=== PATIENT | female | born 1965 | race Caucasian/White ===

== ENCOUNTER 2024-02-12 06:21 | Emergency (ER) | payer BC, SELFPAY ==
[2024-02-12 06:25] VITALS: BP 123/82
[2024-02-12 06:44] VITALS: BP 123/72
[2024-02-12 06:57] LABS: Urine Albumin Negative (Neg - Trace); Urine Bilirubin Negative (Negative); Urine Character Clear (Clear); Urine Color Yellow; Urine Glucose Negative (Negative); Urine Ketone Negative (Negative); Urine Leukocyte Negative (Negative); Urine Nitrite Negative (Negative); Urine Occult Blood Trace (Negative); Urine Specific Gravity 1.015 (<1.030); Urine Urobilinogen Negative (Neg - 1+)
[2024-02-12 06:59] LABS: % Basophils 1.1 % (0-2); % Eosinophils 1.5 % (0-6); % Immature Granulocytes 0.4 % (0-0.5); % Lymphocytes 38.3 % (20.5-51.1); % Monocytes 9.1 % (1.7-9.3); % Neutrophils 49.6 % (42.2-75.2); Absolute Basophils 0.1 10^3/uL (0-0.2); Absolute Eosinophils 0.1 10^3/uL (0-0.7); Absolute Lymphocytes 1.8 10^3/uL (1.2-3.4); Absolute Monocytes 0.4 10^3/uL (0.1-0.6); Absolute Neutrophils 2.4 10^3/uL (1.4-6.5); Hemoglobin 13.1 g/dL (12.0-16.0); Mean Corp Hgb Conc. 33.6 g/dL (33.0-37.0); Mean Corpuscular Hgb 28.4 pg (27.0-31.0); Mean Corpuscular Volume 84.6 fL (81.0-99.0); Mean Platelet Volume 10.3 fL (7.4-10.4); Nucleated Red Blood Cells % 0 %; Platelet Count 286 10^3/uL (130-400); Red Blood Cell Count 4.61 10^6/uL (4.20-5.40); Red Cell Dist. Width 12.9 % (11.5-14.5); White Blood Cell Count 4.8 10^3/uL (4.8-10.8)
[2024-02-12 07:00] VITALS: BP 122/75
[2024-02-12 07:11] LABS: ALT (SGPT) 48 U/L (0-35); AST (SGOT) 50 U/L (14-36); Albumin 4.7 g/dl (3.5-5.0); Alkaline Phosphatase 67 U/L (38-126); Blood Urea Nitrogen 14 mg/dl (7-17); Calcium 10.1 mg/dl (8.4-10.2); Carbon Dioxide 30 mmol/L (22-30); Chloride 107 mmol/L (98-107); Glucose 113 mg/dl (70-99); Lipase 90 U/L (23-300); Potassium 3.9 mmol/L (3.5-5.1); Sodium 143 mmol/L (135-145); Total Bilirubin 0.6 mg/dl (0.2-1.3); Total Protein 7.2 g/dl (6.3-8.2); eGFR > 60.00
[2024-02-12 07:21] LABS: Urine Bacteria Few (Negative); Urine White Cell 0-2 /HPF (0-5)
[2024-02-12 07:25] LABS: Troponin I < 0.012 ng/ml
--- NOTE | 2024-02-12 07:36 | ED.GENMED ---
History of Present Illness
General
Chief Complaint: Chest Pain
Source: patient
Exam Limitations: none
Time Seen by Provider: 02/12/24 07:05
Nursing documentation reviewed up to this point in time: agreed with
History of Present Illness
History of Present Illness:
58-year-old female with past medical history of Sjogren's, inappropriate sinus tachycardia, small fiber neuropathy on hydroxychloroquine, metoprolol and omeprazole presents to the ER for evaluation. Patient reports for the past 3 months at least
she has had reflux symptoms. She put her self on omeprazole. She did see her boiler out Dr. Sumaya Villalobos and because she had normal stress test in 2020 he did not think this was cardiac and put her on Protonix 40 mg. She does have a GI doctor that
is not associate with this hospital and saw the GI physician January 24. Because she was doing well on 40 mg of omeprazole he decreased it to 20 mg every day and after couple days of 20 mg her symptoms started to recur. Patient reports last night it
was the worst its ever been it is worse with sleeping or laying down she did take Tums without relief she denies any shortness of breath however she does feel the pain in her back. Sometimes she gets tingling in her arm. She denies any abdominal
pain.
Because of the sinus tachycardia she avoids caffeine and has been avoiding acidic foods. She has had a slight decreased appetite because of symptoms she denies any weight loss.
She denies any recent fever chills injury. She has no cardiac history. She is no family cardiac history disease. She does not smoke.
Review of Systems
Review of Systems
Allergies reviewed?: Yes
All Other Systems: ROS reviewed and negative except as documented in HPI and ROS
Constitutional: Reports no symptoms
EENT: Reports no symptoms
Respiratory: Reports no symptoms
Cardiac: Reports no symptoms
ABD/GI: Reports other (Reflux)
: Reports no symptoms
Musculoskeletal: Reports back pain (feels pain in her back )
Skin: Reports no symptoms
Neurological: Reports no symptoms
Psychiatric: Reports no symptoms
Phy Exam
General Physical Exam
General Presentation: no apparent distress
General age: appears stated age
General Skin: warm and dry
General Habitus: normal
General Mental: alert
General Hydration: appears well hydrated
Cardiovascular Exam
Cardiovascular Exam: regular rate/rhythm, no murmur and normal peripheral pulses
Neurological Exam
Neurological Exam: alert and oriented x3
Musculoskeletal Exam
Musculoskeletal Exam: full ROM
Skin Exam
Skin Exam: normal color and warm/dry
Psychiatric Exam
Psychiatric Exam: normal mood/affect
Scores
Heart Score for Chest Pain Patients
STEMI patient?: Not applicable
Course
Orders/Labs/Results
Orders:
Orders
02/12/24 06:30
IV Insert/Care/Rem.- Treatment PRN
Straight cath- Treatment ONCE
02/12/24 06:31
ECG [Electrocardiogram (*1)] Urgent
Reason for Study: Chest Pain
Cardiology Consult: Naveed Bains
EKG- Treatment ONCE
02/12/24 06:47
Complete Blood Count/With Diff Urgent
Comprehensive Metabolic Panel Urgent
Lipase Urgent
Troponin I Urgent
Urinalysis Reflex To Culture Urgent
Date Specimen was Collected: 02/12/24
Time Specimen was Collected: 06:31
Urine Microscopic Reflex Cult Urgent
02/12/24 07:40
Electrocardiogram (*1) Stat
Reason for Study: Other
Other Reason for Exam: chest pain
Mag Hydrox/Al Hydrox/Simeth [Maalox] 30 ml Phenobarb/Hyoscy/Atropine/Scop [] 10 ml PO NOW
02/12/24 07:41
Chest [CR Chest - 2 Views ] Urgent
Comment:
Reason For Exam: cp
02/12/24 07:42
US Abdomen Complete/Upper Urgent
Comment:
Reason For Exam: upper abd pain/ reflux radiating to back
02/12/24 07:55
Mag Hydrox/Al Hydrox/Simeth [Maalox] 30 ml .ROUTE .STK-MED ONE
Phenobarb/Hyoscy/Atropine/Scop [] 10 ml .ROUTE .STK-MED ONE
02/12/24 09:40
Sucralfate Suspension [Carafate Suspension] 1 gm PO NOW STA
Abnormal Lab Results
02/12/24
06:47
Glucose 113 H mg/dl
(70-99)
AST 50 H U/L
(14-36)
ALT 48 H U/L
(0-35)
Ur Occult Blood Reflex Trace A
(Negative)
Urine RBC 3-6 A /HPF
(0-2)
Urine Bacteria (Reflex) Few A
(Negative)
02/12/24 06:47
02/12/24 06:47
Vital Signs
Initial and Last Documented VS:
Initial Vital Signs
Temp Pulse Resp BP Pulse Ox
99.2 F 90 20 123/82 98
02/12/24 06:25 02/12/24 06:25 02/12/24 06:25 02/12/24 06:25 02/12/24 06:25
Last Documented Vital Signs
Temp Pulse Resp BP Pulse Ox
99.2 F 81 16 103/71 95
02/12/24 06:25 02/12/24 07:45 02/12/24 07:45 02/12/24 10:00 02/12/24 10:15
Vocational Training Teacher consulted with Physician
Vocational Training Teacher consulted with physician?: Yes
Name of Physician Consulted: Hi
MDM/Problems Addressed
MDM/Problems Addressed:
Patient has had reflux symptoms for the past several months on omeprazole currently however symptoms worsened last night. She had a normal stress test in 2020 is seen by cardiology for sinus tachycardia. Because of worsening reflux last night
patient presented to the ER today. She did take Tums without relief. She does feel pain in her back. She has no cardiac history and no cardiac risk factors no family history of cardiac disease she does not smoke. She presents awake alert no
acute distress abdomen soft nontender. With discomfort radiating to back will check ultrasound chest x-ray and give dose of GI cocktail here in the ER. I did review patient's stress echo from 2020 which was normal.
11am: Patient felt some improved from GI cocktail however she was given Carafate which did not really improve her symptoms. Will DC with continued Protonix that she is currently taking will add Carafate however I do feel that patient does need GI
follow-up and endoscopy. GI senior front end developer office was notified patient given information for GI also reviewed with family doctor follow-up
*Pulse Oximetry
Patient hypoxic: no
*Critical Care Note
Total Time (30-74mins, 75-104mins- exclusive of procedures): Not Applicable
Data Reviewed
Review of Other/Old Records Reveals: Other (Stress echo from 2020 reviewed)
ED Attending Note
-
Portions of this chart may have been created with voice recognition software.� Occasional wrong word or��sound alike� substitutions may have occurred due to the inherent limitations of voice recognition software.
Discharge Plan
Departure
Patient Disposition: Home (Routine Discharge)
Date of Disposition: 02/12/24
Time of Disposition: 11:07
Patient with high blood pressure during this ER visit?: No
Condition: Fair
Covid-19: Not Applicable
Discharge Problem:
GERD (gastroesophageal reflux disease)
Instructions: Acid Reflux and GERD in Adults (DC)
Prescriptions:
New
sucralfate [Carafate] 100 mg/mL suspension
10 ml PO ACHS Qty: 1000 0RF
No Action
Ajovy Syringe
225 mg PO MONTHLY
Metoprolol
25 mg PO DAILY
Referrals:
Alessandra Matthew MD [Active] -
Enedelia Godinez CRNP [Family Provider] -
Activity Restrictions/Additional Instructions:
As discussed continue Protonix. A prescription for Carafate was sent to your pharmacy as requested. He may take this before meals and at bedtime. Follow-up with your family doctor and GI as discussed. Return if any worsening of symptoms. Call
Tuesday morning for appointment.
Interventions
Interventions:
*Risk Screen - Suicide Last Done: 02/12/24 06:25
*General Assessment Last Done: 02/12/24 06:25
*Neglect/Abuse Screening Last Done: 02/12/24 06:25
ED- Fall Risk Assessment Last Done: 02/12/24 06:25
*ED COVID-19 Vaccine History Last Done: 02/12/24 06:25
DG-Gcgerr-Gfnfsqojdr Assessment Last Done: 02/12/24 06:58
ED- Cardiac Assessment Last Done: 02/12/24 06:58
Discharge Date and Time
Print Language: ITALIAN
[2024-02-12] MEDS: MAALOX 40 PO (08:13)
[2024-02-12 09:29] VITALS: BP 109/72
[2024-02-12] MEDS: CARAFATE SUSPENSION 1 GM PO (09:47)
[2024-02-12 10:00] VITALS: BP 103/71
[2024-02-12 11:00] VITALS: BP 110/70
== END 2024-02-12 11:38 | disposition home or self-care (01) ==
LOC: EMR 06:21
PROVIDERS: EMERGENCY PHYSICIAN Emergency Medicine; FAMILY PHYSICIAN Nurse Practitioner
DX: K21.9 Gastro-esophageal reflux disease without esophagitis (principal)
CPT/HCPCS: 99285; 71046; 76700; 80053; 81003; 81015; 83690; 84484; 85025; 93005

== ENCOUNTER → 2024-06-04 13:38 | Outpatient (REF) | payer BC, SELFPAY | LOC: HWRAD 13:38 | PROVIDERS: ATTENDING PHYSICIAN Nurse Practitioner | DX: E04.1 Nontoxic single thyroid nodule (principal) | CPT/HCPCS: 76536 ==

== ENCOUNTER → 2024-07-09 09:04 | Outpatient (REF) | payer BC, SELFPAY | LOC: HWWDC 09:04 | PROVIDERS: ATTENDING PHYSICIAN Nurse Practitioner Adult Health; FAMILY PHYSICIAN Nurse Practitioner | DX: Z12.31 Encounter for screening mammogram for malignant neoplasm of breast (principal) | CPT/HCPCS: 77063; 77067 ==

== ENCOUNTER → 2025-04-03 08:50 | Outpatient (REF) | payer BC, SELFPAY | LOC: WDC 08:50 | PROVIDERS: ATTENDING PHYSICIAN Obstetrics & Gynecology Gynecology; FAMILY PHYSICIAN Nurse Practitioner | DX: N63.0 Unspecified lump in unspecified breast (principal) | CPT/HCPCS: 76642; 77061; 77065 ==

== ENCOUNTER → 2025-04-29 16:24 | Outpatient (REF) | payer BC, SELFPAY | LOC: MRI 3T 16:24 | PROVIDERS: ATTENDING PHYSICIAN Nurse Practitioner Adult Health; FAMILY PHYSICIAN Nurse Practitioner | DX: N63.0 Unspecified lump in unspecified breast (principal); Z80.3 Family history of malignant neoplasm of breast | CPT/HCPCS: 77049; A9585 ==

== ENCOUNTER → 2025-05-09 14:35 | Outpatient (REF) | payer BC, SELFPAY | LOC: WDC 14:35 | PROVIDERS: ATTENDING PHYSICIAN Nurse Practitioner Adult Health; FAMILY PHYSICIAN Nurse Practitioner | DX: R92.8 Other abnormal and inconclusive findings on diagnostic imaging of breast (principal) | CPT/HCPCS: 76642 ==

== ENCOUNTER → 2025-05-17 14:06 | Outpatient (REF) | payer BC, SELFPAY | LOC: RAD 14:06 | PROVIDERS: ATTENDING PHYSICIAN Student in an Organized Health Care Education/Training Program; FAMILY PHYSICIAN Nurse Practitioner | DX: D18.00 Hemangioma unspecified site (principal) | CPT/HCPCS: 71275; Q9967 ==

== ENCOUNTER → 2025-07-10 08:19 | Outpatient (REF) | payer BC, SELFPAY | LOC: WDC 08:19 | PROVIDERS: ATTENDING PHYSICIAN Nurse Practitioner Adult Health; FAMILY PHYSICIAN Nurse Practitioner | DX: Z12.31 Encounter for screening mammogram for malignant neoplasm of breast (principal) | CPT/HCPCS: 77063; 77067 ==